=== PATIENT | male | born 1975 | race Caucasian/White ===

== ENCOUNTER 2020-09-19 17:32 | Emergency (ER) | payer BC ==
--- NOTE | 2020-09-19 18:32 | EDM.PDOC ---
ED HPI GENERAL MEDICAL PROBLEM - General Chief Complaint: Respiratory Problem Stated Complaint: COUGH/LOSS OF APPETITE Time Seen by Provider: 09/19/20 17:36 Source of Information: Reports: Patient, RN Notes Reviewed History Limitations: Reports: No Limitations - History of Present Illness INITIAL COMMENTS - FREE TEXT/NARRATIVE: Patient is a 45 year old male presenting to the ER for evaluation of cough x 1 week as well as loss of appetite this Sunday. He describes a harsh nonproductive cough that began last Sunday. It did improve; however, returned and worsened shortly thereafter. He has not had an appetite since Sunday. Denies SOB, fever, chills, nasal congestion, sore throat, nausea, vomiting , or diarrhea. He has had no known sick contacts. - Related Data Allergies Allergy/AdvReac Type Severity Reaction Status Date / Time No Known Allergies Allergy Verified 09/19/20 17:44 Home Meds: Home Meds dexAMETHasone [Dexamethasone] 4 mg PO BID 5 Days #10 tablet 09/19/20 [Rx] Past Medical History - Past Health History Medical/Surgical History: Denies Medical/Surgical History Social & Family History - Tobacco Use Tobacco Use Status *Q: Never Tobacco User - Recreational Drug Use Recreational Drug Use: No ED ROS GENERAL - Review of Systems Review Of Systems: Comprehensive ROS is negative, except as noted in HPI. ED EXAM, GENERAL - Physical Exam Exam: See Below Exam Limited By: No Limitations General Appearance: Alert, WD/WN, No Apparent Distress Respiratory/Chest: No Respiratory Distress, Lungs Clear, Normal Breath Sounds, No Accessory Muscle Use, Chest Non-Tender Cardiovascular: Normal Peripheral Pulses, Regular Rate, Rhythm, No Edema, No Gallop, No JVD, No Murmur, No Rub GI/Abdominal: Normal Bowel Sounds, Soft, Non-Tender, No Organomegaly, No Distention, No Abnormal Bruit, No Mass Neurological: Alert, Oriented, CN II-XII Intact, Normal Cognition, Normal Gait, Normal Reflexes, No Motor/Sensory Deficits Psychiatric: Normal Affect, Normal Mood Skin Exam: Warm, Dry, Intact, Normal Color, No Rash Course - Vital Signs Last Recorded V/S: Last Vital Signs Temp 99.2 F 09/19/20 17:40 Pulse 102 H 09/19/20 17:40 Resp 18 09/19/20 17:40 BP 135/84 09/19/20 17:40 Pulse Ox 93 L 09/19/20 17:40 - Orders/Labs/Meds Orders: Active Orders 24 hr Category Date Time Status Chest 1V Frontal [CR] Stat Exams 09/19/20 17:48 Taken D-DIMER QUANTITATIVE [COAG] Stat Lab 09/19/20 18:05 Received Labs: Laboratory Tests 09/19/20 09/19/20 09/19/20 Range/Units 17:35 18:05 18:05 WBC 3.85 L (4.23-9.07) K/mm3 RBC 5.20 (4.63-6.08) M/mm3 Hgb 15.7 (13.7-17.5) gm/dl Hct 44.1 (40.1-51.0) % MCV 84.8 (79.0-92.2) fl MCH 30.2 (25.7-32.2) pg MCHC 35.6 H (32.2-35.5) g/dl RDW Std Deviation 38.2 (35.1-43.9) fL Plt Count 100 L (163-337) K/mm3 MPV 10.6 (9.4-12.3) fl Neut % (Auto) 59.2 (34.0-67.9) % Lymph % (Auto) 29.9 (21.8-53.1) % [place] % (Auto) 10.6 (5.3-12.2) % Eos % (Auto) 0 L (0.8-7.0) Baso % (Auto) 0.3 (0.1-1.2) % Neut # (Auto) 2.28 (1.78-5.38) K/mm3 Lymph # (Auto) 1.15 L (1.32-3.57) K/mm3 [place] # (Auto) 0.41 (0.30-0.82) K/mm3 Eos # (Auto) 0.00 L (0.04-0.54) K/mm3 Baso # (Auto) 0.01 (0.01-0.08) K/mm3 Sodium 136 (136-145) mEq/L Potassium 4.4 (3.5-5.1) mEq/L Chloride 97 L (98-107) mEq/L Carbon Dioxide 29 (21-32) mEq/L Anion Gap 14.4 (5-15) BUN 12 (7-18) mg/dL Creatinine 1.3 (0.7-1.3) mg/dL Est Cr Clr Drug Dosing 75.65 mL/min Estimated GFR (MDRD) > 60 (>60) mL/min BUN/Creatinine Ratio 9.2 L (14-18) Glucose 168 H (74-106) mg/dL Calcium 8.0 L (8.5-10.1) mg/dL Total Bilirubin 0.9 (0.2-1.0) mg/dL AST 37 (15-37) U/L ALT 62 (16-63) U/L Alkaline Phosphatase 45 L (46-116) U/L C-Reactive Protein 1.2 H* (<1.0) mg/dL Total Protein 7.6 (6.4-8.2) g/dl Albumin 3.7 (3.4-5.0) g/dl Globulin 3.9 gm/dL Albumin/Globulin Ratio 1.0 (1-2) Influenza Type A RNA Negative (NEGATIVE) Influenza Type B RNA Negative (NEGATIVE) SARS-CoV-2 RNA (CONI) Positive H (NEGATIVE) - Re-Assessments/Exams Free Text/Narrative Re-Assessment/Exam: Patient is a 45-year-old male presenting to the emergency department complaints of cough and and loss of appetite. Exam is grossly unremarkable. Oxygen saturation on triage was on the low end of normal at 93%. He denies feeling short of breath. I ordered blood work, chest x-ray, and a Covid and influenza screen. 09/19/20 18:49 Covid test did come back positive. Chest x-ray does not show evidence of pneumonia. We will start the patient on dexamethasone. He does not qualify for monoclonal antibodies based on no chronic medical conditions and BMI less than 35. Discussed return precautions as well as quarantine. Discharge instructions as documented. Departure - Departure Time of Disposition: 18:51 Disposition: Home, Self-Care 01 Condition: Good Clinical Impression: COVID-19 - Discharge Information *PRESCRIPTION DRUG MONITORING PROGRAM REVIEWED*: No *COPY OF PRESCRIPTION DRUG MONITORING REPORT IN PATIENT VIVI: No Prescriptions: dexAMETHasone [Dexamethasone] 4 mg PO BID 5 Days #10 tablet Instructions: COVID-19 Frequently Asked Questions, COVID-19 Referrals: Farhat Salas MD [Primary Care Provider] - Forms: ED Department Discharge Additional Instructions: You were seen in the emergency department today for 1 week history of cough as well as loss of appetite. Work-up included blood work, chest x-ray, and a Covid test. Your Covid was found to be positive. There is no signs of pneumonia at this time. Recommend purchasing a home pulse oximeter to monitor your oxygen saturations. If it is less than 90%, you should return for reevaluation. You been started on dexamethasone with a steroid. Take this medication as prescribed. Follow the quarantine isolation guidelines as put forth by the [facility]. Return to ER for any new or worsening sy mptoms of concern. Sepsis Event Note (ED) - Evaluation Sepsis Screening Result: No Definite Risk - Focused Exam Vital Signs: Vital Signs Temp Pulse Resp BP Pulse Ox 09/19/20 17:40 99.2 F 102 H 18 135/84 93 L - My Orders Last 24 Hours: My Active Orders 09/19/20 17:48 Chest 1V Frontal [CR] Stat 09/19/20 18:05 D-DIMER QUANTITATIVE [COAG] Stat - Assessment/Plan Last 24 Hours: My Active Orders 09/19/20 17:48 Chest 1V Frontal [CR] Stat 09/19/20 18:05 D-DIMER QUANTITATIVE [COAG] Stat
[2020-09-19 18:43] LABS: CORONAVIRUS COVID-19 NAA POSITIVE (NEGATIVE)
[2020-09-19] MEDS ORDERED: Dexamethasone 4 MG Tab PO ONE (18:51)
--- NOTE | 2020-09-20 06:58 | CR ---
Chest: Portable view of the chest was obtained. Comparison: No previous chest imaging is available. Heart size and mediastinum are normal. Lungs are clear with no acute parenchymal change. No acute osseous finding is appreciated. Impression: 1. Nothing acute is appreciated on portable chest x-ray. Diagnostic code #1
== END 2020-09-19 19:10 | disposition home or self-care (01) ==
LOC: JD.ED 17:32
DX: U07.1 COVID-19 (principal)
CPT/HCPCS: 0240U; 36415; 71045; 80053; 85025; 85379; 86140; 99283; J8540

== ENCOUNTER 2020-09-23 05:42 | Emergency (ER) | payer BC ==
--- NOTE | 2020-09-23 06:13 | EDM.PDOC ---
ED HPI GENERAL MEDICAL PROBLEM - General Chief Complaint: Respiratory Problem Stated Complaint: COVID POSITIVE COUGH Time Seen by Provider: 09/23/20 05:52 Source of Information: Reports: Patient, Family () History Limitations: Reports: No Limitations - History of Present Illness INITIAL COMMENTS - FREE TEXT/NARRATIVE: Mr. Tafoya is a pleasant 45-year-old man who now presents to the ED due to a worsening cough due to COVID-19. Medical records indicate that the patient was seen in this ED this past 09/19/2020, with a complaint at that time of a nonproductive cough for 1 week, since 09/12/2020. No dyspnea. He was found to be hemodynamically stable, afebrile, saturating 93% on room air. His physical exam, including his lung exam, was entirely unremarkable. Work-up included a CBC, CMP, CRP, swab for the SARS-CoV-2 virus, and a portable chest x- ray. He was found to have leukopenia of 3.85, with the remainder of his CBC being unremarkable. His CMP was remarkable for hyperglycemia of 168, and was otherwise unremarkable. His CRP was slightly elevated at 1.2, and his swab for the SARS-CoV-2 virus returned positive. His portable chest x-ray was un remarkable. He was started on dexamethasone before being discharged home with a prescription for dexamethasone 4 mg po BID x 5 days, which he states he is still taking. He did not meet criterion for treatment with monoclonal antibodies. Since discharge, the patient states that he purchased a home pulse oximeter, and that his SpO2 has been between 90 and 94%. The patient now returns to the ED stating that his cough has persisted, to the point that he has a sore throat, and difficulty sleeping. No recent fever or dyspnea. He states that he has been taking OTC Robitussin, which does not work. Here in the ED today, the patient is found to be hemodynamically stable, afebrile, saturating 85% on room air initially, but 90 to 92% a few minutes later when I evaluated him. Other than his cough, the patient also complains of a loss of appetite. Otherwise, he denies having a recent fever, chills, sore throat, ear pain, nasal or sinus congestion, dyspnea, chest pain, palpitations, nausea, vomiting, constipation, diarrhea, abdominal pain, urinary symptoms, recent weight gain or weight loss, recent bloody bowel movements or black bowel movements, recent joint aches, headaches, or rashes. The patient's PCP is Dr. Farhat Salas. Headache Pain Score (Numeric/FACES): 6 - Related Data Allergies Allergy/AdvReac Type Severity Reaction Status Date / Time No Known Allergies Allergy Verified 09/23/20 05:52 Home Meds: Home Meds dexAMETHasone [Dexamethasone] 4 mg PO BID 5 Days #10 tablet 09/19/20 [Rx] Losartan Potassium 50 mg PO 09/23/20 [History] guaiFENesin [Robitussin] 100 mg PO Q6H 09/23/20 [History] metFORMIN [Glucophage] 500 mg PO BIDMEALS 09/23/20 [History] Past Medical History - Infectious Disease History Infectious Disease History: Reports: Novel Coronavirus (dx'd 09/19/2020) Social & Family History - Tobacco Use Tobacco Use Status *Q: Never Tobacco User - Alcohol Use Alcohol Use History: Yes Alcohol Use Frequency: Socially - Recreational Drug Use Recreational Drug Use: No - Living Situation & Occupation Living situation: Reports: , with Spouse, with Family (2 kids) Occupation: Employed (workforce management manager) ED ROS GENERAL - Review of Systems Review Of Systems: Comprehensive ROS is negative, except as noted in HPI. ED EXAM, GENERAL - Physical Exam Exam: See Below Exam Limited By: No Limitations General Appearance: Alert, WD/WN, No Apparent Distress Eye Exam: Bilateral Eye: EOMI, Normal Inspection Ears: Normal External Exam, Hearing Grossly Normal Nose: Normal Inspection Throat/Mouth: Normal Inspection, Normal Lips, Normal Teeth, Normal Gums, Normal Voice, No Airway Compromise, Other (Dry oral mucosa) Head: Atraumatic, Normocephalic Neck: Normal Inspection, Supple, Non-Tender, Full Range of Motion. No: Lymphadenopathy (L), Lymphadenopathy (R) Respiratory/Chest: No Respiratory Distress, Lungs Clear, Normal Breath Sounds, No Accessory Muscle Use. No: Decreased Breath Sounds, Crackles, Rhonchi, Wheezing, Stridor, Prolonged Expiration Cardiovascular: Normal Peripheral Pulses, Regular Rate, Rhythm, No Edema, No Gallop, No JVD, No Murmur, No Rub Peripheral Pulses: 3+: Radial (L), Radial (R) GI/Abdominal: Normal Bowel Sounds, Soft, Non-Tender, No Organomegaly, No Distention, No Abnormal Bruit, No Mass Back Exam: Normal Inspection, Full Range of Motion, NT Extremities: Normal Inspection, Normal Range of Motion, No Pedal Edema, Normal Capillary Refill Neurological: Alert, Oriented, Normal Cognition, No Motor/Sensory Deficits Psychiatric: Normal Affect Skin Exam: Warm, Dry, Intact, Normal Color, No Rash Course - Vital Signs Last Recorded V/S: Last Vital Signs Temp 37.7 C 09/23/20 05:54 Pulse 94 09/23/20 05:54 Resp 20 09/23/20 05:54 BP 129/75 09/23/20 05:54 Pulse Ox 85 L 09/23/20 05:54 - Re-Assessments/Exams Free Text/Narrative Re-Assessment/Exam: 09/23/20 06:07 As above, the patient was diagnosed with COVID-19 this past Sunday, having been symptomatic since 09/12/2020. He was treated with dexamethasone, but did not meet criterion for treatment with monoclonal antibodies. He was discharged home with a prescription for dexamethasone, which he is still on, and the recommendation that he monitor his oxygen saturation with a home pulse oximeter, which he has been doing. His SpO2 has been between 90 and 94%. His cough, however, has worsened, to the point that he has a sore throat and difficulty sleeping. At triage, his initial SpO2 was measured at 85%, however, a few minutes later, when I evaluated him, it was between 90 and 92%. His physical exam is grossly unremarkable, including clear lungs to auscultation. I explained to the patient that, unfortunately, there are no [id number] or prescription medications that will help with a cough due to COVID-19. It will have to run its course. He should continue to monitor his oxygen saturation, and if it persistently drops below 88%, he should return to the ED in order to receive supplemental oxygen. He should continue to quarantine, and that goes for his and children, as well, who have not been. Departure - Departure Time of Disposition: 06:10 Disposition: Home, Self-Care 01 Condition: Good Clinical Impression: COVID-19 - Discharge Information *PRESCRIPTION DRUG MONITORING PROGRAM REVIEWED*: Not Applicable *COPY OF PRESCRIPTION DRUG MONITORING REPORT IN PATIENT VIVI: Not Applicable Referrals: Farhat Salas MD [Primary Care Provider] - Additional Instructions: You were seen in the emergency room for a persistent cough in the setting of being diagnosed with COVID-19 on 09/19/2020. Unfortunately, there are no [id number] or prescription medications that will help with a cough due to COVID-19. It will have to run its course. You should continue to finish the dexamethasone as prescribed to you on 09/19/2020. It is very important that you, and everyone in your household, strictly quarantine. You should get retested for COVID-19 on 09/29/2020, but break quarantine until and unless you tested negative. You should continue to monitor your oxygen saturation. If it persistently drops below 88%, please return to the ER to receive supplemental oxygen. Sepsis Event Note (ED) - Evaluation Sepsis Screening Result: No Definite Risk - Focused Exam Vital Signs: Vital Signs Temp Pulse Resp BP Pulse Ox 09/23/20 05:54 37.7 C 94 20 129/75 85 L
== END 2020-09-23 06:24 | disposition home or self-care (01) ==
LOC: JD.ED 05:42 → SUPCPDRO 05:42 → JD.ED 06:24
DX: U07.1 COVID-19 (principal); Z79.899 Other long term (current) drug therapy
CPT/HCPCS: 99283